=== PATIENT | male | born 1985 | race Caucasian/White ===

== ENCOUNTER 2022-08-02 15:26 | Emergency (ER) | payer OTHER ==
[~2022-08-02] VITALS: Ht 180.3 cm; Wt 136.1 kg
[~2022-08-02 15:26] MED LIST: AMOX1XR PO; HYDACE5 PO; HYDGUAL120 PO; PROM25 PO; RXHYDGUAS PO; SUMA25 PO; TRAM50 PO
[2022-08-02] MEDS ORDERED: BUTALB-ACETAMI1 EAC5 PO (19:48)
[2022-08-02] MEDS ORDERED: IMITREX100 MG PO (19:48)
[2022-08-02] MEDS ORDERED: OCUFLOX510 LEFTEAR (20:42)
[2022-08-02] MEDS ORDERED: Imitrex100 MG PO (21:48)
== END 2022-08-02 21:53 | disposition home or self-care (01) ==
LOC: ER 15:26
DX: G43.909 Migraine, unspecified, not intractable, without status migrainosus (principal); H60.90 Unspecified otitis externa, unspecified ear; Z87.891 Personal history of nicotine dependence
CPT/HCPCS: 85651; 86140; J1100; J1200; J1885; J2765; J7030